=== PATIENT | female | born 1965 | race Caucasian/White ===

== ENCOUNTER 2021-04-22 12:58 | Emergency (ER) | payer OTHER ==
[~2021-04-22 12:58] MED LIST: GABAPENTIN100 MG PO; HYDROCODON-ACE1 EAC6 PO; MELOXICAM15 MG PO; TRAZODONE 50MG50 MG PO; TRAZODONE HCL50 MG PO; VICODIN 10/3251 EACH PO
[2021-04-22 14:48] LABS: BASOPHIL 0.9 % (0-2); BILIRUBIN NEGATIVE (NEGATIVE); BLOOD NEGATIVE Ery/uL (NEGATIVE); CLARITY CLEAR (CLEAR); COLOR YELLOW (YELLOW); EOSINOPHIL 2.6 % (0-5); GLUCOSE (U) NORMAL (NORMAL); HCT 41.5 % (37.0-47.0); LEUKOCYTES NEGATIVE Leu/uL (NEGATIVE); LYMPHOCYTE 33.8 % (15-48); MCHC 33.7 g/dL (32.0-36.0); MONOCYTE 5.8 % (0-12); MPV 9.4 fL (6.0-9.5); NEUTROPHIL 56.6 % (41-80); NITRITE NEGATIVE (NEGATIVE); NRBC 0; PLT 246 K/uL (150-400); PROTEIN NEGATIVE (NEGATIVE); RBC 4.37 M/uL (4.20-5.40); RDW 13.7 % (11.5-14.0); SPECIFIC GRAVITY >=1.030 (1.001-1.030); UROBILINOGEN 0.2 mg/dL (0.2-1.0); WBC 9.7 K/uL (4.0-10.5)
[2021-04-22 15:10] LABS: BUN/CREAT RATIO (CALC) 27.9 RATIO; CREATININE 0.86 mg/dL (0.51-0.95); POTASSIUM 4.4 mmol/L (3.5-5.1)
[2021-04-22 15:31] LABS: CORONAVIRUS 2019 SARS-COV-2 NEGATIVE (NEGATIVE); INFLUENZA A NAA NEGATIVE (NEGATIVE)
[2021-04-22] MEDS ORDERED: MEDROL 4MG DOSEP4 MG PO (16:11)
[2021-04-22] MEDS ORDERED: VIBRAMYCIN100 MG PO (16:11)
[2021-04-22] MEDS ORDERED: VENTOLIN HFA IN18 GM INH (16:11)
[2021-04-22] MEDS ORDERED: CYCLOBENZAPRINE10 MG PO (16:11)
== END 2021-04-22 16:25 | disposition home or self-care (01) ==
LOC: FER 12:58
PROVIDERS: Nurse Practitioner Family
DX: J18.9 Pneumonia, unspecified organism (principal); Z20.822 Contact with and (suspected) exposure to COVID-19
CPT/HCPCS: 36415; 71045; 80048; 81003; 85025; 96372; J1100; J1885; U0002

== ENCOUNTER 2021-11-08 11:20 | Emergency (ER) | payer OTHER ==
[~2021-11-08 11:20] MED LIST changes: +CYCLOBENZAPRINE10 MG PO; +MEDROL 4MG DOSEP4 MG PO; +METHOCARBAMOL500 MG PO; +NEURONTIN300 MG PO; +ROBAXIN500 MG PO; +VENTOLIN HFA IN18 GM INH; +VIBRAMYCIN100 MG PO
[2021-11-08] MEDS ORDERED: AMOX TR-K CLV1 EAC4 PO (12:46)
== END 2021-11-08 14:16 | disposition home or self-care (01) ==
LOC: FER 11:20
DX: S61.551A Open bite of right wrist, initial encounter (principal); S51.851A Open bite of right forearm, initial encounter; W55.01XA Bitten by cat, initial encounter; Y92.009 Unspecified place in unspecified non-institutional (private) residence as the place of occurrence of the external cause
CPT/HCPCS: 99283